=== PATIENT | female | born 1935 | race Caucasian/White ===

== ENCOUNTER 2019-09-27 10:20 | Day surgery (SDC) | payer OTHER, MEDICARE ==
[2019-09-26 11:04] VITALS: BMI 26.6
[2019-09-27] MEDS ORDERED: ceFAZolin SODIUM 1 GM VIAL ONE (13:01)
[2019-09-27] MEDS ORDERED: MIDAZOLAM HCL 2 MG/2 ML SINGLE DOSE VIAL ONE ×2 (13:01→14:21)
[2019-09-27] MEDS ORDERED: DEXAMETHASONE SOD PHOSPHATE 4 MG/1 ML VIAL ONE (13:01)
[2019-09-27] MEDS ORDERED: ONDANSETRON 4 MG/2 ML VIAL ONE (13:01)
[2019-09-27] MEDS ORDERED: BUPIVACAINE HCL/PF 0.5% (5 MG/ML) 30 ML VIAL IJ ONE (13:01)
[2019-09-27] MEDS ORDERED: LIDOCAINE 1%/EPI 1:100000 (20 ML MULTI DOSE VIAL) ONE (13:13)
[2019-09-27] MEDS ORDERED: methylPREDNISolone ACET (DEPO) 40 MG/1 ML VIAL ONE (13:13)
[2019-09-27] MEDS ORDERED: GUM MASTIC/STORAX/MSAL/ALCOHOL 1 DRP DROPSBTL MC ONE (13:13)
[2019-09-27] MEDS ORDERED: BUPIVACAINE HCL/PF 0.5% (5MG/ML) 10 ML VIAL ONE (13:45)
[2019-09-27] MEDS ORDERED: PROMETHAZINE HCL 25 MG/1 ML VIAL IVPUSH PRN (15:13)
[2019-09-27] MEDS ORDERED: oxyCODONE HCL 5 MG TABLET PO PRN ×2 (15:13)
[2019-09-27] MEDS ORDERED: ONDANSETRON 4 MG/2 ML VIAL IVPUSH PRN (15:13)
--- NOTE | 2019-09-27 16:09 | OP ---
Operative Note - Note: Operative Date: 09/27/19 Pre-Operative Diagnosis: spinal stenosis Operation: L4-L5 laminectomy and decompression Post-Operative Diagnosis: Same as Pre-op Surgeon: Niko Mcknight Calculating Machine Mechanic: Valerie Blair Anesthesiologist/WRITER EDITOR: Jreemy Madrid Anesthesia: Spinal, Local Estimated Blood Loss (mls): 20 Fluid Volume Replaced (mls): 600 Operative Report Dictated: Yes
--- NOTE | 2019-09-27 16:13 | SURG ---
Surgery Manager Enrollment Note Manager Enrollment: Valerie Blair PA-C Date of Service: 09/27/19 Diagnosis: spinal stenosis Procedure: L4-L5 laminectomy and decompression I was present for the entirety of the operative procedure. For further detail, please refer to operative report. Visit type - Case Type Case Type: Scheduled - Emergency Emergency Visit: No - New patient This patient is new to me today: Yes Date on this admission: 09/27/19
--- NOTE | 2019-09-27 16:21 | OP ---
DATE OF OPERATION: 09/27/2019 PREOPERATIVE DIAGNOSIS: Spinal stenosis, L4-L5. POSTOPERATIVE DIAGNOSIS: Spinal stenosis, L4-L5. PROCEDURE PERFORMED: Laminectomy, L4-L5. SURGEON: Niko Mcknight MD TOP AND TRIM WORKER: FELICE Padilla ESTIMATED BLOOD LOSS: 50 mL. INTRAVENOUS FLUIDS: Per Anesthesia. ANESTHESIA: Spinal/TLIP. COMPLICATIONS: None. DISPOSITION: Patient brought to PACU in stable condition. INDICATION FOR SURGERY: The patient is an 84-year-old female who has been suffering from pain from her back down the legs. X-rays confirmed she had spinal stenosis at L4-L5. She had gone through an exhaustive course of treatment for this that included medications, physical therapy, as well as injections. Unfortunately, pain continued to persist despite all this. At this point, risks, benefits, and alternatives were discussed, and the patient consented to surgery. DESCRIPTION OF PROCEDURE: Patient brought to the operating room by anesthesia staff. After appropriate patient identification, spinal anesthesia was given. TLIP block was also given. Patient was able to position herself prone onto the operating room table with all area of bony prominences well padded. At this time 2 needles were placed into her back to [place] off the L4-L5 level. X-ray was taken to confirm this was correct. [place] were removed, and 10 mL of lidocaine with epinephrine was injected in her back. At this time her back was prepped and draped in sterile manner. At this point a timeout was completed and incision was made from the top of L4 down to the bottom of L5. Dissection was carried down to the fascia. Fascia was split open at this time, and appropriate retractors were then placed in. A spinal needle was placed onto the L4 lamina to [place] off the L4-L5 level. X-ray was taken to confirm this was correct. Needle was removed and interspinous ligament at L4-L5 was removed. A portion of the L4-L5 lamina was removed. was removed. A complete decompression was performed by Anesthesia. The L4-L5 nerve root appeared to be well decompressed. All bleeding was well controlled at this time. Steroid was placed over the nerve root. FloSeal was placed over that. The fascia was closed No. 1 Vicryl. Subcutaneous tissues were closed with 2-0 Vicryl. Skin was closed with 3-0 Monocryl. Dermabond was applied and Steri-Strips were applied. Sterile dressing was placed. Patient was placed supine on the bed and brought to PACU in stable condition. Keon HERNANDEZ/[id number]
[2019-09-27] MEDS ORDERED: oxyCODONE HCL 5 MG TABLET ONE (17:17)
[2019-09-27 17:53] VITALS: BP 124/84; PULSE 72; TEMP 98
== END 2019-09-27 18:29 | disposition home or self-care (01) ==
LOC: FASU 10:20
PROVIDERS: ATTEND Orthopaedic Surgery Orthopaedic Surgery of the Spine
PROC: 01NB0ZZ Release Lumbar Nerve, Open Approach (ICD-10-PCS; principal; 2019-09-27 14:26)
DX: M48.061 Spinal stenosis, lumbar region without neurogenic claudication (principal)
CPT/HCPCS: 72100-TC-FY; 76000-TC-FY; 94760